=== PATIENT | male | born 1955 | race Caucasian/White ===

== ENCOUNTER 2016-09-16 08:24 | Inpatient (IN) | payer OTHER ==
[2016-09-09 17:26] LABS: HEMATOCRIT 40.6 % (40.0-51.0); HEMOGLOBIN 14.1 g/dL (13.6-17.8)
[2016-09-09 17:38] LABS: ASCORBIC ACID (UR NOT ORDER) NEG (NEG); BILIRUBIN, URINE NEGATIVE (NEG); KETONE, URINE NEGATIVE (NEG); LEUKOCYTE ESTERASE(NOT OR NEG (NEG); WBC (NOT ORDERED) (RFLEX) 1 (0-5)
[2016-09-09 17:39] LABS: BUN (BLOOD UREA NITROGEN) 12 MG/DL (6-23); CHLORIDE, SERUM 103 MMOL/L (96-112); CO2 (CARBON DIOXIDE) 27 MMOL/L (24-34); CREATININE 0.76 MG/DL (0.70-1.30); GFR AFRICAN AMERICAN 116 ML/MIN (>=60); GFR NON AFRICAN AMERICAN 100 ML/MIN (>=60); SODIUM, SERUM 138 MMOL/L (135-148)
[2016-09-09 17:40] LABS: GLUCOSE, SERUM 84 MG/DL (60-99); POTASSIUM, SERUM 3.6 MMOL/L (3.5-5.3)
--- NOTE | ~2016-09-16 | OP ---
Record Of Operation [facility] [address] [place]. [address] NAME: KAYLI SOLANO : 57 STATUS : DIS IN PAT#: [id number] AGE: 60 ADM/REG DATE : 09/16/16 MR#: [id number] REPORT SERV DATE: 09/18/16 DICTATED BY: DELONTE RICCI DATE: 09/18/16 REPORT STATUS : Draft TRANSCRIBED BY: MODL DATE: 09/18/16 DATE OF PROCEDURE: 09/16/2016 TYPE OF OPERATION: 1. Robot-assisted laparoscopic simple prostatectomy. 2. Umbilical hernia repair. PREOPERATIVE DIAGNOSIS: Benign prostatic hypertrophy with obstruction. POSTOPERATIVE DIAGNOSES: 1. Benign prostatic hypertrophy with obstruction. 2. Umbilical hernia. INDICATIONS: Mr. Solano is a 60-year-old male with a very large prostate of 135 g. He has difficulty voiding. He is here for robotic simple prostatectomy. ANESTHESIA: General. COMPLICATIONS: None. IMPLANT: A #10 round MENDY drain. A 24-[place] three-way Hector catheter. SPECIMEN: Prostatic adenoma. NARRATIVE: The patient was brought to the operating room, identified by his wristband. General anesthesia was induced and Ancef was given for preoperative antibiotics. He was placed in a dorsal lithotomy position, prepped and draped in sterile fashion. A 16-[place] Hector catheter was placed into his bladder. The balloon was inflated with 10 mL of sterile water. The abdomen was insufflated to pressure of 15 mmHg using a Veress needle. An 8 mm port was placed in a supraumbilical position. The abdomen was entered. The abdomen was inspected. 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 A standard X-Y port placement was performed with two 8 mm ports on the left side of the body, a fourth 8 mm port on the right side of the body. I placed a 12 mm port in the right lower quadrant for certified physician's assistant port and a 5 mm port in the upper right quadrant for a second certified physician's assistant port. The patient was placed in Trendelenburg and the robot was docked. I dropped the bladder off the anterior abdominal wall with electrocautery. The prostate and pubic bone were identified. The prostate was defatted. This tissue was removed and discarded. A horizontal cystotomy was made in the bladder. There was a very large intravesical adenoma. A 0 Vicryl suture was placed through the adenoma as a marking suture. The bladder mucosa was scored on the mucosa above the trigone. Care was taken into the ureters. This dissection was carried deeply through the detrusor fibers onto the adenoma itself. The adenoma was then traced inferiorly beneath the bladder to the junction of the transitional and peripheral zones. The adenoma was enucleated off the prostatic capsule laterally and superiorly off the peripheral zone posteriorly. The urethra was identified and precisely divided. The adenoma was then removed and placed into an EndoCatch bag. The bladder mucosa was advanced into the Record Of Operation [address] [address] NAME: KAYLI SOLANO : 57 STATUS : DIS IN PAT#: [id number] AGE: 60 ADM/REG DATE : 09/16/16 MR#: [id number] REPORT SERV DATE: 09/18/16 DICTATED BY: DELONTE RICCI DATE: 09/18/16 REPORT STATUS : Draft TRANSCRIBED BY: SALMA DATE: 09/18/16 prostatic fossa with a running 3-0 V-Loc suture. The dorsal venous penetrators were oversewn with a 3-0 V-Loc suture in a U-shaped configuration. 24-[place] three-way Hector catheter was placed into the bladder. The cystotomy was closed in two layers. The first layer was a mucosal layer using a 3-0 V-Loc suture. The second layer was a seromuscular layer using a 2-0 V-Loc suture. The catheter was irrigated. The connection was water tight. The balloon was inflated with 40 mL of sterile water and CBI was initiated with Hector on traction. Next, the robot was undocked. The certified physician's assistant port was closed with a 0 Vicryl suture using a Myron-Rivera device. A #10 round MENDY drain was placed to the left lateral certified physician's assistant robotic port. It was sutured in with a 2-0 Prolene suture. The rest of the ports were removed. The supraumbilical incision was turned into a periumbilical incision and the bag was removed. An umbilical hernia defect was identified. The hernia sac was dissected free and had only . It was discarded. There was a small fascial bridge between the umbilical hernia defect and the fascial edge. This was divided. The fascia was then closed all together with 0 Monocryl suture in a figure-of- eight fashion. The wounds were irrigated clear. The subcutaneous tissues were closed with 3-0 Vicryl suture in an interrupted fashion. The skin was closed with 4-0 Monocryl suture in a subcuticular fashion. Dermabond dressing was placed. The patient was awoken from anesthesia and transferred to recovery room in stable condition. There were no complications. SEBASTIAN/SALMA Delonte Ricci MD / [id number] CC: MD Forest Muhammad M.D.
[~2016-09-16 08:24] MED LIST: CENTRUM PO; COZAAR100 MG PO; RAPAFLO8 MG PO; SYN.05 PO; VITAMIN D1000 UNI1 PO; VITE PO; WELLXL300 PO
[2016-09-16 14:51] LABS: BASOPHILS 0.2 %; BASOPHILS ABSOLUTE 0.01 10/3/uL (0.0-0.16); EOSINOPHILS 0 %; HEMATOCRIT 42.7 % (40.0-51.0); HEMOGLOBIN 14.9 g/dL (13.6-17.8); IMMATURE GRANULOCYTES 0.5 %; IMMATURE GRANULOCYTES ABSOLUTE 0.03 10/3/uL (0.0-0.11); LYMPHOCYTES 12.6 %; LYMPHOCYTES ABSOLUTE 0.84 10/3/uL (0.67-4.30); MANUAL DIFF NO %; MEAN CORPUS HGB CONC 34.9 g/dL (32.0-36.0); MEAN CORPUSCULAR HEMOGLOB 34.6 pg (26.0-34.0); MEAN CORPUSCULAR VOLUME 99.1 fL (80-100); MEAN PLATELET VOLUME 10.1 fL (9.2-13.0); MONOCYTES 2.1 %; MONOCYTES ABSOLUTE 0.14 10/3/uL (0.21-1.20); NEUTROPHILS 84.6 %; NEUTROPHILS ABSOLUTE 5.64 10/3/uL (2.02-8.40); PLATELET COUNT 330 10/3/uL (150-400); RBC DISTRIBUTION WIDTH 13.6 % (12.0-16.0); RED CELL COUNT 4.31 10/6/uL (4.7-6.1); WHITE BLOOD CELLS 6.7 10/3/uL (4.5-10.5)
[2016-09-16 15:04] LABS: BUN (BLOOD UREA NITROGEN) 5 MG/DL (6-23); CHLORIDE, SERUM 106 MMOL/L (96-112); CO2 (CARBON DIOXIDE) 26 MMOL/L (24-34); CREATININE 0.86 MG/DL (0.70-1.30); GFR AFRICAN AMERICAN 110 ML/MIN (>=60); GFR NON AFRICAN AMERICAN 95 ML/MIN (>=60); GLUCOSE, SERUM 123 MG/DL (60-99); POTASSIUM, SERUM 4.6 MMOL/L (3.5-5.3); SODIUM, SERUM 140 MMOL/L (135-148)
[2016-09-17 05:50] LABS: BASOPHILS 0.1 %; BASOPHILS ABSOLUTE 0.01 10/3/uL (0.0-0.16); EOSINOPHILS 0 %; HEMATOCRIT 41.1 % (40.0-51.0); HEMOGLOBIN 14.2 g/dL (13.6-17.8); IMMATURE GRANULOCYTES 0.3 %; IMMATURE GRANULOCYTES ABSOLUTE 0.04 10/3/uL (0.0-0.11); LYMPHOCYTES 8.5 %; MANUAL DIFF NO %; MEAN CORPUS HGB CONC 34.5 g/dL (32.0-36.0); MEAN CORPUSCULAR VOLUME 101.2 fL (80-100); MEAN PLATELET VOLUME 10.1 fL (9.2-13.0); MONOCYTES 8.3 %; MONOCYTES ABSOLUTE 1.27 10/3/uL (0.21-1.20); NEUTROPHILS 82.8 %; NEUTROPHILS ABSOLUTE 12.63 10/3/uL (2.02-8.40); PLATELET COUNT 324 10/3/uL (150-400); RBC DISTRIBUTION WIDTH 13.5 % (12.0-16.0); RED CELL COUNT 4.06 10/6/uL (4.7-6.1); WHITE BLOOD CELLS 15.3 10/3/uL (4.5-10.5)
[2016-09-17 05:59] LABS: BUN (BLOOD UREA NITROGEN) 6 MG/DL (6-23); CALCIUM, SERUM 8.8 MG/DL (8.5-10.4); CHLORIDE, SERUM 109 MMOL/L (96-112); CO2 (CARBON DIOXIDE) 24 MMOL/L (24-34); CREATININE 0.71 MG/DL (0.70-1.30); GFR AFRICAN AMERICAN 119 ML/MIN (>=60); GFR NON AFRICAN AMERICAN 103 ML/MIN (>=60); GLUCOSE, SERUM 131 MG/DL (60-99); POTASSIUM, SERUM 4.1 MMOL/L (3.5-5.3); SODIUM, SERUM 142 MMOL/L (135-148)
[2016-09-17] MEDS ORDERED: DSS PO (11:09)
[2016-09-17] MEDS ORDERED: CIP5 PO (11:10)
[2016-09-17] MEDS ORDERED: PCET PO (11:10)
== END 2016-09-18 12:04 | disposition home or self-care (01) | DRG 707 ==
LOC: SDC/OF 08:24 → PACU 14:27 → 4SO 16:12
PROVIDERS: Urology
PROC: 0WQF0ZZ Repair Abdominal Wall, Open Approach (ICD-10-PCS; principal; 2016-09-16 09:30)
PROC: 0VT04ZZ Resection of Prostate, Percutaneous Endoscopic Approach (ICD-10-PCS; principal; 2016-09-16 09:30)
PROC: 8E0W4CZ Robotic Assisted Procedure of Trunk Region, Percutaneous Endoscopic Approach (ICD-10-PCS; principal; 2016-09-16 09:30)
DX: N40.1 Benign prostatic hyperplasia with lower urinary tract symptoms (principal); N13.8 Other obstructive and reflux uropathy; K42.9 Umbilical hernia without obstruction or gangrene; Z90.81 Acquired absence of spleen; G25.0 Essential tremor
CPT/HCPCS: 36415; 80048; 81001; 82570; 85014; 85018; 85025; 86850; 86900; 86901; 88307; 93005; A9270-GY; J0690; J2250; J2405; J2710; J2795; J3010